=== PATIENT | female | born 1970 | race Caucasian/White ===

== ENCOUNTER 2022-10-02 11:11 | Emergency (ER) | payer OTHER ==
[~2022-10-02] VITALS: Ht 157.5 cm; Wt 104.9 kg
[2022-10-02] MEDS ORDERED: ACETAMINOPHEN 500 MG TAB PO ONE (14:40)
[2022-10-02 15:10] LABS: HEMATOCRIT 41.5 % (36.0-47.0); HEMOGLOBIN 13.7 g/dl (12.0-15.5); MEAN CORPUSCULAR HEMOGLOBIN 30.2 pg (27.0-33.0); MEAN CORPUSCULAR VOLUME 91.4 fl (80.0-96.0); PLATELET COUNT, AUTOMATED 230 10^3/uL (150-450); RED BLOOD COUNT 4.54 10^6/uL (4.00-5.40); WHITE BLOOD COUNT 5.6 10^3/uL (4.0-10.0)
[2022-10-02 15:34] LABS: BLOOD UREA NITROGEN 19 MG/DL (9-23); CALCIUM LEVEL 8.8 MG/DL (8.5-10.1); CARBON DIOXIDE LEVEL 27 MMOL/L (20-31); CHLORIDE LEVEL 106 MMOL/L (98-107); CREATININE FOR GFR 0.67 MG/DL (0.55-1.30); GLOMERULAR FILTRATION RATE > 60.0 (>51); GLUCOSE, FASTING 103 MG/DL (60-100); POTASSIUM SERUM 4.2 MMOL/L (3.5-5.1); SODIUM LEVEL 140 MMOL/L (136-145)
[2022-10-02] MEDS ORDERED: NAPHSOL OP (16:10)
[2022-10-02] MEDS ORDERED: ALBU8.5H INH (16:10)
[2022-10-02] MEDS ORDERED: BREAMIS10 MC (16:10)
[2022-10-02 16:20] VITALS: BP 160/90; TEMP 98.6; O2SAT 96
== END 2022-10-02 16:21 | disposition home or self-care (01) ==
LOC: M ED 11:11
DX: R06.02 Shortness of breath (principal); Z79.51 Long term (current) use of inhaled steroids

== ENCOUNTER → 2023-08-18 | Outpatient (CLI) | payer OTHER ==
[~2023-08-18] MED LIST: ALBU8.5H INH; BREAMIS10 MC; NAPHSOL OP
[2023-08-18 11:57] LABS: BASO % 0.4 % (0.0-1.0); EOS # 0.2 10^3/uL (0.0-0.5); HEMATOCRIT 43.3 % (36.0-47.0); HEMOGLOBIN 13.9 g/dl (12.0-15.5); LYMPH # 1.4 10^3/uL (1.5-5.0); LYMPH % 25.6 % (24.0-44.0); MEAN CORPUSCULAR HEMOGLOBIN 30.2 pg (27.0-33.0); MEAN CORPUSCULAR HGB CONC 32.1 g/dl (32.0-36.5); MEAN CORPUSCULAR VOLUME 93.9 fl (80.0-96.0); MONO # 0.5 10^3/uL (0.0-0.8); MONO % 9.5 % (2.0-8.0); NEUTROPHILS # 3.2 10^3/uL (1.5-8.5); NEUTROPHILS % 60.1 % (36.0-66.0); PLATELET COUNT, AUTOMATED 211 10^3/uL (150-450); RED BLOOD COUNT 4.61 10^6/uL (4.00-5.40); WHITE BLOOD COUNT 5.3 10^3/uL (4.0-10.0)
[2023-08-18 12:42] LABS: HEMOGLOBIN A1c 5.6 % (4.0-6.0)
[2023-08-18 13:28] LABS: URIC ACID 5.6 MG/DL (3.1-7.8)
[2023-08-18 13:30] LABS: IRON (FE) 86 UG/DL (50-170)
[2023-08-18 13:31] LABS: ALKALINE PHOSPHATASE 80 U/L (46-116); ALT/SGPT 42 U/L (7.0-40); AST/SGOT 21 U/L (<34); BILIRUBIN,TOTAL 0.4 MG/DL (0.3-1.2); BLOOD UREA NITROGEN 12 MG/DL (9-23); CALCIUM LEVEL 8.7 MG/DL (8.5-10.1); CARBON DIOXIDE LEVEL 29 MMOL/L (20-31); CHLORIDE LEVEL 103 MMOL/L (98-107); CHOLESTEROL LEVEL 187 MG/DL (<200); CHOLESTEROL RISK RATIO 3.25 (<5); CREATININE FOR GFR 0.67 MG/DL (0.55-1.30); ESTRADIOL < 19.0 PG/ML; FERRITIN 27.2 NG/ML (7.3-270.7); FREE T3 2.9 PG/ML (2.3-4.2); FREE T4 0.97 NG/DL (0.89-1.76); GLOMERULAR FILTRATION RATE > 60.0 (>51); GLUCOSE, FASTING 117 MG/DL (60-100); HDL CHOLESTEROL 57.4 MG/DL (>40); LDL CHOLESTEROL 104.8 MG/DL (<100); MAGNESIUM LEVEL 1.7 MG/DL (1.8-2.4); NON-HDL-C 129.6 MG/DL; POTASSIUM SERUM 4.3 MMOL/L (3.5-5.1); PROGESTERONE 0.35 NG/ML; SODIUM LEVEL 140 MMOL/L (136-145); THYROID STIMULATING HORMONE 2.192 uIU/ML (0.55-4.78); TOTAL 25(OH) VITAMIN D 42.9 NG/ML (20.0-100.0); TOTAL PROTEIN 7.3 G/DL (5.7-8.2); TRIGLYCERIDES LEVEL 124 MG/DL (<150)
[2023-08-18 13:34] LABS: VITAMIN B12 LEVEL > 2000 PG/ML (211-911)
[2023-08-19 17:08] LABS: INSULIN LEVEL 19.7 uIU/mL (2.6-24.9); TESTOSTERONE FREE (DIRECT) 1.7 pg/mL (0.0-4.2)
== END ==
LOC: M WUC 08:24
PROVIDERS: ATTEND Family Medicine
DX: Z00.00 Encounter for general adult medical examination without abnormal findings (principal); D50.9 Iron deficiency anemia, unspecified; R53.83 Other fatigue; E78.5 Hyperlipidemia, unspecified; E55.9 Vitamin D deficiency, unspecified; N95.1 Menopausal and female climacteric states; E34.9 Endocrine disorder, unspecified; E07.89 Other specified disorders of thyroid

== ENCOUNTER → 2023-10-31 | Outpatient (CLI) | payer OTHER ==
[2023-10-31 13:53] LABS: BASO % 0.6 % (0.0-1.0); EOS # 0.2 10^3/uL (0.0-0.5); EOS % 3.7 % (0.0-3.0); HEMOGLOBIN 14.1 g/dl (12.0-15.5); LYMPH # 2.5 10^3/uL (1.5-5.0); LYMPH % 38.9 % (24.0-44.0); MEAN CORPUSCULAR HEMOGLOBIN 30.5 pg (27.0-33.0); MONO # 0.5 10^3/uL (0.0-0.8); MONO % 8.1 % (2.0-8.0); NEUTROPHILS # 3.1 10^3/uL (1.5-8.5); NEUTROPHILS % 48.4 % (36.0-66.0); PLATELET COUNT, AUTOMATED 227 10^3/uL (150-450); RED BLOOD COUNT 4.63 10^6/uL (4.00-5.40); WHITE BLOOD COUNT 6.5 10^3/uL (4.0-10.0)
[2023-10-31 14:04] LABS: HEMOGLOBIN A1c 5.4 % (4.0-6.0)
[2023-10-31 14:17] LABS: FREE T4 1.05 NG/DL (0.89-1.76); URIC ACID 8.1 MG/DL (3.1-7.8)
[2023-10-31 14:18] LABS: PROGESTERONE 0.33 NG/ML; TOTAL 25(OH) VITAMIN D 52.9 NG/ML (20.0-100.0)
[2023-10-31 14:19] LABS: FOLLICLE STIMULATING HORMONE 56.4 mIU/ML
[2023-10-31 14:20] LABS: ALBUMIN 4.1 G/DL (3.2-5.2); ALKALINE PHOSPHATASE 80 U/L (46-116); ALT/SGPT 32 U/L (7.0-40); AST/SGOT 18 U/L (<34); BILIRUBIN,TOTAL 0.3 MG/DL (0.3-1.2); BLOOD UREA NITROGEN 11 MG/DL (9-23); CALCIUM LEVEL 9.3 MG/DL (8.5-10.1); CARBON DIOXIDE LEVEL 28 MMOL/L (20-31); CHLORIDE LEVEL 105 MMOL/L (98-107); CHOLESTEROL LEVEL 207 MG/DL (<200); CHOLESTEROL RISK RATIO 3.98 (<5); CREATININE FOR GFR 0.77 MG/DL (0.55-1.30); FERRITIN 22.7 NG/ML (7.3-270.7); GLOMERULAR FILTRATION RATE > 60.0 (>51); GLUCOSE, FASTING 134 MG/DL (60-100); IRON (FE) 51 UG/DL (50-170); LDL CHOLESTEROL 129.4 MG/DL (<100); MAGNESIUM LEVEL 1.8 MG/DL (1.8-2.4); POTASSIUM SERUM 4.6 MMOL/L (3.5-5.1); SODIUM LEVEL 140 MMOL/L (136-145); THYROID STIMULATING HORMONE 2.648 uIU/ML (0.55-4.78); TOTAL PROTEIN 7.2 G/DL (5.7-8.2); TRIGLYCERIDES LEVEL 128 MG/DL (<150)
[2023-10-31 14:22] LABS: ESTRADIOL 43.6 PG/ML
[2023-10-31 14:25] LABS: FREE T3 3.3 PG/ML (2.3-4.2)
[2023-10-31 14:29] LABS: VITAMIN B12 LEVEL > 2000 PG/ML (211-911)
[2023-11-03 08:43] LABS: INSULIN LEVEL 48.2 uIU/mL (<=18.4)
== END ==
LOC: M WUC 10:29
PROVIDERS: ATTEND Family Medicine
DX: D50.9 Iron deficiency anemia, unspecified (principal); R53.83 Other fatigue; E78.5 Hyperlipidemia, unspecified; E55.9 Vitamin D deficiency, unspecified; N95.1 Menopausal and female climacteric states; E34.9 Endocrine disorder, unspecified; E07.89 Other specified disorders of thyroid

== ENCOUNTER → 2023-12-08 | Outpatient (CLI) | payer OTHER ==
[2023-12-08 13:25] LABS: BASO % 0.5 % (0.0-1.0); EOS # 0.2 10^3/uL (0.0-0.5); EOS % 3.2 % (0.0-3.0); HEMATOCRIT 44.5 % (36.0-47.0); HEMOGLOBIN 14.7 g/dl (12.0-15.5); LYMPH # 2.2 10^3/uL (1.5-5.0); LYMPH % 39.8 % (24.0-44.0); MEAN CORPUSCULAR HEMOGLOBIN 31.1 pg (27.0-33.0); MEAN CORPUSCULAR VOLUME 94.3 fl (80.0-96.0); MONO # 0.4 10^3/uL (0.0-0.8); MONO % 7.7 % (2.0-8.0); NEUTROPHILS # 2.7 10^3/uL (1.5-8.5); NEUTROPHILS % 48.3 % (36.0-66.0); PLATELET COUNT, AUTOMATED 240 10^3/uL (150-450); RED BLOOD COUNT 4.72 10^6/uL (4.00-5.40); WHITE BLOOD COUNT 5.6 10^3/uL (4.0-10.0)
[2023-12-08 13:53] LABS: FOLLICLE STIMULATING HORMONE 46.8 mIU/ML
[2023-12-08 13:54] LABS: PROGESTERONE 0.25 NG/ML
[2023-12-08 13:58] LABS: ESTRADIOL 37.5 PG/ML
== END ==
LOC: M WUC 09:26
PROVIDERS: ATTEND Family Medicine
DX: R89.1 Abnormal level of hormones in specimens from other organs, systems and tissues (principal); N95.1 Menopausal and female climacteric states; E34.9 Endocrine disorder, unspecified; E07.89 Other specified disorders of thyroid

== ENCOUNTER → 2024-03-09 | Outpatient (CLI) | payer OTHER ==
[2024-03-09 10:22] LABS: BASO % 0.6 % (0.0-1.0); EOS # 0.2 10^3/uL (0.0-0.5); EOS % 3.5 % (0.0-3.0); HEMATOCRIT 45.5 % (36.0-47.0); LYMPH # 1.9 10^3/uL (1.5-5.0); MEAN CORPUSCULAR HEMOGLOBIN 30.5 pg (27.0-33.0); MEAN CORPUSCULAR VOLUME 92.7 fl (80.0-96.0); MONO # 0.4 10^3/uL (0.0-0.8); MONO % 8.3 % (2.0-8.0); NEUTROPHILS # 2.6 10^3/uL (1.5-8.5); PLATELET COUNT, AUTOMATED 211 10^3/uL (150-450); RED BLOOD COUNT 4.91 10^6/uL (4.00-5.40); WHITE BLOOD COUNT 5.2 10^3/uL (4.0-10.0)
[2024-03-09 10:47] LABS: ESTRADIOL 23.1 PG/ML; FOLLICLE STIMULATING HORMONE 53.2 mIU/ML
[2024-03-09 10:48] LABS: PROGESTERONE 0.31 NG/ML
== END ==
LOC: M PLALAB 07:37
PROVIDERS: ATTEND Family Medicine
DX: R89.1 Abnormal level of hormones in specimens from other organs, systems and tissues (principal)